=== PATIENT | male | born 1990 | race Caucasian/White ===

== ENCOUNTER 2025-05-22 17:07 | Inpatient (IN) | payer SELFPAY ==
[2025-05-22] MEDS ORDERED: Ondansetron PF 4 MG/2 ML Vial IVP PRN (19:11)
[2025-05-22] MEDS ORDERED: Nitroglycerin 0.4 MG TAB (25 Tab Bottle) SL PRN (19:11)
[2025-05-22] MEDS: Lidocaine 2% Viscous Solution 10 ML, Aluminum & Magnesium Hydroxide 30 ML SSW SCH (20:07)
[2025-05-22] MEDS: Lisinopril 10 MG TAB PO SCH (21:28)
[2025-05-22] MEDS: Pantoprazole 40 MG VIAL IVP SCH (21:29)
[2025-05-22 22:55] LABS: Troponin I 14.171 ng/mL (< 0.028)
[2025-05-23 00:03] LABS: Cocaine Metabolite Screen Negative (Negative); THC/Cannabinoid Screen Negative (Negative); Tricyclic Screen Negative (Negative)
[2025-05-23] MEDS: Heparin 10,000 UNITS/ 10 ML VIAL SLOW IVP SCH (00:55)
[2025-05-23 01:00] LABS: Hematocrit 47.5 % (42.0-52.0); Hemoglobin 16.2 g/dL (14.0-18.0); Platelet Count 193 10x3/uL (130-400)
[2025-05-23] MEDS: Nitroglycerin 2% Ointment 1 INCH/1 GM Packet TOP SCH ×2 (02:27→10:21)
[2025-05-23] MEDS: Acetaminophen 325 MG TAB PO PRN (02:33)
[2025-05-23 02:43] LABS: #Basophils 0.06 10x3/uL (0.0-0.2); #Eosinophils 0.31 10x3/uL (0.0-0.7); #Monocytes 1.77 10x3/uL (0.11-0.59); #Neutrophils 9.61 10x3/uL (1.40-6.50); %Basophils 0.4 % (0.0-1.0); %Eosinophils 2.3 % (0.0-10.0); %Lymphocytes 14.0 % (21.0-51.0); %Monocytes 12.9 % (0.0-10.0); %Neutrophils 69.9 % (42.0-75.0); Hematocrit 46.5 % (42.0-52.0); Hemoglobin 15.9 g/dL (14.0-18.0); Mean Corpuscular Hemoglobin 33.2 pg (27.0-31.0); Mean Corpuscular Volume 97.1 fL (78.0-98.0); Platelet Count 192 10x3/uL (130-400); Red Blood Cell (RBC) Count 4.79 mill/uL (4.70-6.10); White Blood Cell (WBC) Count 13.74 10x3/uL (4.8-10.8)
[2025-05-23 03:38] LABS: Troponin I 20.884 ng/mL (< 0.028)
[2025-05-23] MEDS: Nitroglycerin 50 MG/250 ML BOT 250 ML IVPB SCH (03:40)
[2025-05-23 05:05] LABS: ALT (SGPT) 92 U/L (Less than 45); AST (SGOT) 227 U/L (11-34); Albumin 4.2 g/dL (3.1-4.5); Alkaline Phosphatase 60 U/L (40-110); Anion Gap 16 mmol/L (10-20); BUN (Urea Nitrogen) 10 mg/dL (8.9-20.6); Bilirubin, Total 1.0 mg/dL (0.3-1.2); Calc. Creatinine Clearance 202 mL/min (70-130); Calcium 10.1 mg/dL (7.8-10.44); Carbon Dioxide 26 mmol/L (22-29); Cardiac Risk 3.9 (Less than 4.5); Chloride 100 mmol/L (98-107); Cholesterol 180 mg/dl (< 200 Desired); Globulin 3.7 g/dL (2.4-3.5); Glucose 111 mg/dL (70-105); HDL Cholesterol 46 mg/dL (>60 Neg Risk); LDL Cholesterol, Calculated 122 mg/dL; Potassium 3.9 mmol/L (3.5-5.1); Sodium 138 mmol/L (136-145); Triglycerides 61 mg/dL (Less than 150)
[2025-05-23 06:05] LABS: Troponin I 27.846 ng/mL (< 0.028)
[2025-05-23] MEDS: Lisinopril 10 MG TAB PO SCH (08:04)
[2025-05-23] MEDS: Multivit, Therapeutic 1 TAB PO SCH (08:04)
[2025-05-23] MEDS: Folic Acid 1 MG TAB PO SCH (08:05)
[2025-05-23] MEDS: Aspirin Chewable 81 MG TAB PO SCH (08:36)
[2025-05-23] MEDS: Mupirocin 1 GM TUBE NASAL DECOLONIZATION NASAL SCH (08:36)
[2025-05-23] MEDS ORDERED: Adenosine 6 mg (2 mL) VIAL ONE (08:45)
[2025-05-23] MEDS ORDERED: Nitroglycerin 50 MG/250 ML BOT 250 ML ONE (08:46)
[2025-05-23] MEDS ORDERED: Lidocaine 1% (PF) 30 ML VIAL ONE (08:46)
[2025-05-23] MEDS ORDERED: Heparin 10,000 UNITS/ 10 ML VIAL ONE ×2 (08:46→09:51)
[2025-05-23] MEDS ORDERED: Iopamidol 370 76% 100 ML VIAL ONE (09:47)
[2025-05-23] MEDS ORDERED: TICAGRELOR 90 MG TABLET ONE (09:56)
[2025-05-23] MEDS: TICAGRELOR 90 MG TABLET PO SCH (20:40)
[2025-05-24 04:53] VITALS: BMI 32.5
[2025-05-24] MEDS: Metoprolol Succinate XL 25 MG ER.TAB PO SCH (09:48)
[2025-05-24 10:58] LABS: #Basophils 0.05 10x3/uL (0.0-0.2); #Eosinophils 0.16 10x3/uL (0.0-0.7); #Monocytes 1.41 10x3/uL (0.11-0.59); #Neutrophils 8.35 10x3/uL (1.40-6.50); %Basophils 0.4 % (0.0-1.0); %Eosinophils 1.4 % (0.0-10.0); %Lymphocytes 12.9 % (21.0-51.0); %Monocytes 12.2 % (0.0-10.0); %Neutrophils 72.6 % (42.0-75.0); Hematocrit 47.9 % (42.0-52.0); Hemoglobin 15.7 g/dL (14.0-18.0); Mean Corpuscular Hemoglobin 33.0 pg (27.0-31.0); Mean Corpuscular Volume 100.6 fL (78.0-98.0); Platelet Count 183 10x3/uL (130-400); Red Blood Cell (RBC) Count 4.76 mill/uL (4.70-6.10); White Blood Cell (WBC) Count 11.52 10x3/uL (4.8-10.8)
[2025-05-24 11:18] LABS: ALT (SGPT) 64 U/L (Less than 45); AST (SGOT) 103 U/L (11-34); Albumin 4.2 g/dL (3.1-4.5); Alkaline Phosphatase 52 U/L (40-110); Anion Gap 16 mmol/L (10-20); BUN (Urea Nitrogen) 16 mg/dL (8.9-20.6); Bilirubin, Total 1.5 mg/dL (0.3-1.2); Calc. Creatinine Clearance 159 mL/min (70-130); Calcium 9.7 mg/dL (7.8-10.44); Carbon Dioxide 24 mmol/L (22-29); Chloride 102 mmol/L (98-107); Globulin 4.1 g/dL (2.4-3.5); Glucose 78 mg/dL (70-105); Potassium 3.7 mmol/L (3.5-5.1); Sodium 138 mmol/L (136-145)
[2025-05-24 12:05] VITALS: TEMP 98.5
[2025-05-24 13:53] VITALS: BP 134/97
[2025-05-25] MEDS ORDERED: Thiamine 100 MG TAB PO SCH (20:00)
== END 2025-05-24 14:16 | disposition home or self-care (01) | DRG 322 ==
LOC: OBS 17:28 → CCU 05-23 03:26 → OBS 05-23 21:23
PROVIDERS: ADMIT Family Medicine; ATTEND Family Medicine
PROC: 4A023N7 Measurement of Cardiac Sampling and Pressure, Left Heart, Percutaneous Approach (ICD-10-PCS; principal; 2025-05-23)
PROC: 027034Z Dilation of Coronary Artery, One Artery with Drug-eluting Intraluminal Device, Percutaneous Approach (ICD-10-PCS; 2025-05-23)
PROC: B2151ZZ Fluoroscopy of Left Heart using Low Osmolar Contrast (ICD-10-PCS; 2025-05-23)
PROC: B2111ZZ Fluoroscopy of Multiple Coronary Arteries using Low Osmolar Contrast (ICD-10-PCS; 2025-05-23)
DX: I21.4 Non-ST elevation (NSTEMI) myocardial infarction (principal); I10 Essential (primary) hypertension; K21.9 Gastro-esophageal reflux disease without esophagitis; F10.10 Alcohol abuse, uncomplicated; Z79.899 Other long term (current) drug therapy; Z79.82 Long term (current) use of aspirin; Z79.01 Long term (current) use of anticoagulants; E66.811 Obesity, class 1; Z68.32 Body mass index [BMI] 32.0-32.9, adult; E78.5 Hyperlipidemia, unspecified; I20.0 Unstable angina
CPT/HCPCS: 36415; 80053; 80061; 80306; 84484; 85025; 85347; 85730; 87081; 92941; 93005; 93010; 93306; 93454; 93798; 99152; 99153; C1725; C1760; C1769; C1874; C1887; C9606; J0153; J1644; J2250; J2270; J2470; J3010; J3246; J3411; J7030; Q9967